=== PATIENT | female | born 2000 ===

== ENCOUNTER 2019-07-24 11:08 | Day surgery (SDC) | payer OTHER ==
[~2019-07-24] VITALS: Ht 180.3 cm; Wt 82.8 kg
[2019-07-24] MEDS ORDERED: FOLGARD TABLET1 EACH (11:56)
[2019-07-24] MEDS ORDERED: LEVSOD75 (11:56)
== END 2019-07-24 14:29 | disposition home or self-care (01) ==
LOC: ORSCSDS 11:08
PROVIDERS: Student in an Organized Health Care Education/Training Program
PROC: 0DB68ZX Excision of Stomach, Via Natural or Artificial Opening Endoscopic, Diagnostic (ICD-10-PCS; principal; 2019-07-24 12:45)
PROC: 0DB98ZX Excision of Duodenum, Via Natural or Artificial Opening Endoscopic, Diagnostic (ICD-10-PCS; principal; 2019-07-24 12:45)
DX: R11.2 Nausea with vomiting, unspecified (principal); K29.70 Gastritis, unspecified, without bleeding; E03.9 Hypothyroidism, unspecified; Z79.899 Other long term (current) drug therapy
CPT/HCPCS: 88305; 88342; J2250; J2704; J3010; J7120